=== PATIENT | male | born 2000 | race Caucasian/White ===

== ENCOUNTER 2023-05-03 04:29 | Day surgery (SDC) | payer BC ==
[2023-04-30 10:40] VITALS: BMI 18.6
[2023-05-03] MEDS ORDERED: SIMETHICONE 40 MG/0.6 ML BOTTLE ONE (07:24)
[2023-05-03] MEDS ORDERED: LIDOCAINE VISCOUS 2% ORAL/TOP 15 ML UNIT-DOSE CUP ONE (08:00)
[2023-05-03 08:44] VITALS: RESP 17
[2023-05-03 08:45] VITALS: BP 105/64; PULSE 66; TEMP 98
== END 2023-05-03 08:45 | disposition home or self-care (01) ==
LOC: JASU-ENDO 04:29
PROVIDERS: ATTEND Student in an Organized Health Care Education/Training Program
PROC: 0DB78ZX Excision of Stomach, Pylorus, Via Natural or Artificial Opening Endoscopic, Diagnostic (ICD-10-PCS; 2023-05-03)
PROC: 0DB28ZX Excision of Middle Esophagus, Via Natural or Artificial Opening Endoscopic, Diagnostic (ICD-10-PCS; 2023-05-03)
PROC: 0DB38ZX Excision of Lower Esophagus, Via Natural or Artificial Opening Endoscopic, Diagnostic (ICD-10-PCS; principal; 2023-05-03 08:00)
DX: K29.50 Unspecified chronic gastritis without bleeding (principal); K20.0 Eosinophilic esophagitis
CPT/HCPCS: 88305-TC; 88342-TC